=== PATIENT | female | born 1960 | race Caucasian/White ===

== ENCOUNTER 2016-07-10 13:22 | Emergency (ER) | payer MEDICARE, OTHER ==
[~2016-07-10] VITALS: Ht 165.1 cm; Wt 72.0 kg
[~2016-07-10 13:22] MED LIST: BECL8.7A IH; DEXL60CA2 PO; FAMO-18 PO; INDO25CA25 PO; IPRA14.76; SUMA20SP PO; TOPI25TA38 PO
[2016-07-10 14:18] VITALS: Ht 165.1 cm; Wt 72.0 kg
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
[2016-07-10] MEDS ORDERED: HYDROCODONE/APAP (5/325) TAB PO ONE (16:30)
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
[2016-07-10] MEDS ORDERED: CYCL-319 PO (17:50)
[2016-07-10] MEDS ORDERED: NAPR-260 PO (17:50)
[2016-07-10] MEDS ORDERED: TRAM50TA2 PO (17:50)
== END 2016-07-10 17:58 | disposition home or self-care (01) ==
LOC: FTE 13:22
DX: M54.2 Cervicalgia (principal); M54.5 Low back pain; R07.89 Other chest pain; R42 Dizziness and giddiness; J45.909 Unspecified asthma, uncomplicated
CPT/HCPCS: 71010; 72040; 72100

== ENCOUNTER 2017-03-03 17:34 | Emergency (ER) | payer MEDICARE, OTHER ==
[~2017-03-03] VITALS: Ht 157.5 cm; Wt 68.5 kg
[~2017-03-03 17:34] MED LIST changes: +CYCL-319 PO; -FAMO-18 PO; +FAMO-96 PO; +NAPR-260 PO; -TOPI25TA38 PO; +TOPI25TA51 PO; +TRAM50TA2 PO
[2017-03-03 17:45] VITALS: Ht 157.5 cm; Wt 68.5 kg
--- NOTE | 2017-03-03 19:13 | ERD ---
ER Documentation Chief Complaint Chief Complaint Complains of a cough x 2 weeks current medications not working HPI 56-year-old female presents to emergency department for complaints of cough for 2 weeks, history of surgery in her lungs, patient is currently on fluticasone inhaler, Combivent and a 10 mg of prednisone to help control her symptoms with only mild relief. Patient was also given promethazine with codeine to help with symptoms and albuterol at home to help with wheezing symptoms with mild relief. Patient does not have any fever or chills. Patient does not have any chest pain or palpitations. Denies any sick contacts. Patient denies any sore throat or ear pain. ROS All systems reviewed and are negative except as per history of present illness. Medications Home Meds Active Scripts Cyclobenzaprine Hcl* (Cyclobenzaprine Hcl*) 10 Mg Tablet, 10 MG PO QHS, #7 TAB Prov:DEBRA BAH PA-C 07/10/16 Naproxen* (Naprosyn*) 500 Mg Tablet, 500 MG PO BID Y for PAIN AND/OR INFLAMMATION, #30 TAB Prov:DEBRA BAH PA-C 07/10/16 Tramadol HCl (Tramadol HCl) 50 Mg Tablet, 50 MG PO Q4 Y for PAIN, #20 TAB Prov:DEBRA BAH PA-C 07/10/16 Reported Medications Beclomethasone Dip* (Qvar 40*) 7.3 Gm Inha, 7.3 GM IH 01/14/13 Sumatriptan* Nasal (Imitrex* Nasal) 20 Mg/[place], 25 MG PO TAKE ONE TAB NEEDED 01/14/13 Topiramate* (Topamax*) 25 Mg Tablet, 25 MG PO TID 05/11/12 Indomethacin* (Indocin*) 25 Mg Capsule, 25 MG PO BID 05/11/12 Famotidine* (Pepcid*) 20 Mg Tablet, 20 MG PO DAILY 05/11/12 Dexlansoprazole (Dexilant) 60 Mg , 60 MG PO DAILY 05/11/12 Albuterol/Ipratropium (Combivent) 14.7 Gm Inha PRN 03/12/09 Allergies Allergies: Coded Allergies: No Known Allergy (Verified , 05/11/12) PMhx/Soc History of Surgery: Yes (PNEUMONECTOMY,HYSTERECTOMY,BLADDER, GALLBLADDER) Anesthesia Reaction: No Hx Neurological Disorder: No Hx Respiratory Disorders: Yes (ASTHMA) Hx Cardiac Disorders: No Hx Psychiatric Problems: No Hx Miscellaneous Medical Probl: Yes (MIGRAINES) Hx Alcohol Use: No Hx Substance Use: No Hx Tobacco Use: No Smoking Status: Never smoker FmHx Family History: No coronary disease, No diabetes, No other Physical Exam Vitals Vital Signs Date Time Temp Pulse Resp B/P Pulse Ox O2 Delivery O2 Flow Rate FiO2 03/03/17 17:45 97.7 98 20 126/89 96 Physical Exam GENERAL: The patient is well developed and appropriate for usual state of health, in no apparent distress. CHEST: Clear to auscultation bilaterally. There are no rales, wheezes or rhonchi. HEART: Regular rate and rhythm. No murmurs, clicks, rubs or gallops. No S3 or S4. ABDOMEN: Soft, nontender and nondistended. Good bowel sounds. No rebound or guarding. No gross peritonitis. No gross organomegaly or masses. No Sebastian sign or McBurney point tenderness. BACK: No midline or flank tenderness. EXTREMITIES: Equal pulses bilaterally. There is no peripheral clubbing, cyanosis or edema. No focal swelling or erythema. Full range of motion. Grossly neurovascularly intact. NEURO: Alert and oriented. Cranial nerves 2-12 intact. Motor strength in all 4 extremities with 5/5 strength. Sensation grossly intact. Normal speech and gait. SKIN: There is no apparent rash or petechia. The skin is warm and dry. HEMATOLOGIC AND LYMPHATIC: There is no evidence of excessive bruising or lymphedema. No gross cervical, axillary, or inguinal lymphadenopathy. Results 24 hrs PROCEDURE: XR Chest. CLINICAL INDICATION: Cough. TECHNIQUE: Single frontal view of the chest COMPARISON: 07/10/2016 and 01/20/2013, with intervening chest radiographs. Partially visualized lung bases on CT examinations of the abdomen and pelvis dated 02/27/2013 and 09/04/2013. FINDINGS: Persistent volume loss on the right with near complete opacification again seen in right lung. Again seen is cardiac and mediastinal shift to the right. Differential considerations include remote right partial pneumonectomy. A surgical clip is again seen over the right upper lung. Right mainstem bronchus appears substantially opacified versus surgically absent. The left lung is again seen to be hyperinflated. The left lung appears clear. These findings are similar in appearance to plain film examinations of the chest dated 07/10/2016 and 01/20/2013. IMPRESSION: 1. Near-complete opacification of the right lung is without significant overhead foreman interval, with persistent right lung volume loss. 2. Nevertheless, these findings are without significant overhead foreman interval since 01/20/2013. 3. There is no CT examination of the chest of record at this institution, and a follow-up CT examination may be of further use, although there has been no overhead foreman about 4 years. 4. Partially visualized bilateral lung bases on prior CT examinations the abdomen and pelvis dated 02/27/2013 and 09/04/2013 suggest at least a partial right pneumonectomy. RPTAT: [facility]U Physician Eliazar Date Time Electronically viewed and signed by Ita Coulter Physician on 03/03/2017 20:13 RS/ CC: GINA LYNN ARMORING MACHINE OPERATOR Procedures/MDM Medical Decision Making: Patient symptoms are most likely consistent with acute bronchitis most likely caused by a typical infection. There is low suspicion for Pneumonia at this time since patients lungs sounds are clear, patient O2 saturation is normal and patient doesnt show any respiratory distress. Patients chest xray doesnt show infiltrates or any other cardiopulmonary emergencies at this time. There is low suspicion for other cardiopulmonary emergencies at this time such as CHF, Pulmonary Embolism, Pneumothorax, or any other cardiopulmonary emergencies at this time. There is low suspicion for sepsis. Patient appears well and is hemodynamically stable. Patient does not have any fever. Disposition: Home. Condition: Stable Prescriptions: Tessalon Perles, azithromycin, continue albuterol and other medication Instructions: Patient is advised to take medications as prescribed. Patient is advised to rest. Patient advised to increase fluid intake, do humidifier at home and if possible, do salt water gargles. Patient is advised that if symptoms are worse, shortness of breath, uncontrolled fever, stridor, vomiting, worst signs and symptoms to return to emergency department immediately. Otherwise, patient is advised to follow up with primary doctor in 5-7 days. Disclaimer: Inadvertent spelling and grammatical errors are likely due to EHR/ dictation software use and do not reflect on the overall quality of patient care. Also, please note that the electronic time recorded on this note does not necessarily reflect the actual time of the patient encounter. Departure Diagnosis: Primary Impression: Acute bronchitis Bronchitis organism: unspecified organism Qualified Code: J20.9 - Acute bronchitis, unspecified organism Condition: Stable Patient Instructions: Bronchitis, Antiobiotic Treatment (Adult) Additional Instructions: Patient is advised to take medications as prescribed. Patient is advised to rest. Patient advised to increase fluid intake, do humidifier at home and if possible, do salt water gargles. Patient is advised that if symptoms are worse, shortness of breath, uncontrolled fever, stridor, vomiting, worst signs and symptoms to return to emergency department immediately. Otherwise, patient is advised to follow up with primary doctor in 5-7 days. GINA LYNN NP Mar 03, 2017 19:13
[2017-03-03 19:45] VITALS: BP 124/79; PULSE 72; RESP 18; TEMP 98.3
--- NOTE | 2017-03-03 20:13 | RADRPT ---
PROCEDURE: XR Chest. CLINICAL INDICATION: Cough. TECHNIQUE: Single frontal view of the chest COMPARISON: 07/10/2016 and 01/20/2013, with intervening chest radiographs. Partially visualized angelica g bases on CT examinations of the abdomen and pelvis dated 02/27/2013 and 09/04/2013. FINDINGS: Persistent volume loss on the right with near complete opacification again seen in right lung. Again seen is cardiac and mediastinal shift to the right. Differential considerations include remote right partial pneumonectomy. A surgical clip is again see n over the right upper lung. Right mainstem bronchus appears substantially opacified versus surgical ly absent. The left lung is again seen to be hyperinflated. The left lung appears clear. These findi ngs are similar in appearance to plain film examinations of the chest dated 07/10/2016 and 3. IMPRESSION: 1. Near-complete opacification of the right lung is without significant exchange engineer interval, with p ersistent right lung volume loss. 2. Nevertheless, these findings are without significant exchange engineer interval since 01/20/2013. 3. There is no CT examination of the chest of record at this institution, and a follow-up CT examina tion may be of further use, although there has been no exchange engineer about 4 years. 4. Partially visualized bilateral lung bases on prior CT examinations the abdomen and pelvis dated 1 04/30/2012 and 09/04/2013 suggest at least a partial right pneumonectomy. RPTAT: [facility]U Physician Eliazar Date Time Electronically viewed and signed by Physician Eliazar on 03/03/2017 20:13 RS/
[2017-03-03] MEDS ORDERED: BENZ100C70 PO (20:32)
[2017-03-03] MEDS ORDERED: AZIT250T94 PO (20:32)
== END 2017-03-03 20:54 | disposition home or self-care (01) ==
LOC: FTE 17:34
DX: J20.9 Acute bronchitis, unspecified (principal); J45.909 Unspecified asthma, uncomplicated
CPT/HCPCS: 71010

== ENCOUNTER 2018-06-10 09:15 | Day surgery (SDC) | payer MEDICARE, OTHER ==
[~2018-06-10] VITALS: Ht 160 cm; Wt 71.0 kg
[~2018-06-10 09:15] MED LIST changes: +AZIT250T PO; +BENZ-6 PO; -CYCL-319 PO; +CYCL10TA7 PO; +INDO25CA16 PO; -INDO25CA25 PO; -NAPR-260 PO; +NAPR-985 PO; +TOPI25TA PO; -TOPI25TA51 PO
[2018-06-10 10:22] VITALS: Ht 160 cm; Wt 71.0 kg
--- NOTE | 2018-06-10 10:22 | PREAC ---
Date/Time of Note Date/Time of Note DATE: 06/10/18 TIME: 10: Anesthesia Eval and Record Evaluation Time Pre-Procedure Interview DATE: 06/10/18 TIME: 10:21 Age 57 Sex female NPO: 8 hrs Preoperative diagnosis abd pain Planned procedure egd, colonoscopy Past Medical History Past Medical History: Includes Pulm: Asthma GI: GERD Surgery & Anesthesia Issues No known issue Meds Anticoagulation: No Beta Jeremy within 24 hr: No Reason Beta Jeremy not given: Pt. not on B-Jeremy Active Scripts Benzonatate* (Tessalon Perle*) 100 Mg Capsule, 100 MG PO Q8H PRN for COUGH, #20 CAP Prov:GINA LYNN NP 03/03/17 Azithromycin* (Zithromax*) 250 Mg Tablet, 250 MG PO .ZPACK DIRECTED, #6 TAB TAKE 500 MG (2 TABS) THE FIRST DAY THEN 250 MG (1 TAB) DAYS 2-5 Prov:GINA LYNN NP 03/03/17 Cyclobenzaprine Hcl* (Cyclobenzaprine Hcl*) 10 Mg Tablet, 10 MG PO QHS, #7 TAB Prov:DEBRA BAH PA-C 07/10/16 Naproxen* (Naprosyn*) 500 Mg Tablet, 500 MG PO BID PRN for PAIN AND/OR INFLAMMATION, #30 TAB Prov:DEBRA BAH PA-C 07/10/16 Tramadol HCl (Tramadol HCl) 50 Mg Tablet, 50 MG PO Q4 PRN for PAIN, #20 TAB Prov:DEBRA BHA PA-C 07/10/16 Reported Medications Beclomethasone Dip* (Qvar 40*) 7.3 Gm Inha, 7.3 GM IH 01/14/13 Sumatriptan* Nasal (Imitrex* Nasal) 20 Mg/[place], 25 MG PO TAKE ONE TAB NEEDED 01/14/13 Topiramate* (Topamax*) 25 Mg Tablet, 25 MG PO TID 05/11/12 Indomethacin* (Indocin*) 25 Mg Capsule, 25 MG PO BID 05/11/12 Famotidine* (Pepcid*) 20 Mg Tablet, 20 MG PO DAILY 05/11/12 Dexlansoprazole (Dexilant) 60 Mg Cap., 60 MG PO DAILY 05/11/12 Albuterol/Ipratropium (Combivent) 14.7 Gm Inha PRN 03/12/09 Meds reviewed: Yes Allergies Coded Allergies: No Known Allergy (Verified , 05/11/12) Allergies Reviewed: Yes Labs/Studies Labs Reviewed: Reviewed by anesthesiologist test: Negative Studies: ECG Pre-procedure Exam Airway: Adequate mouth opening, Adequate thyromental dist Mallampati: Mallampati II Teeth: Normal Lung: Normal Heart: Normal ASA Physical Status ASA physical status: 2 Emergency: None Planned Anesthetic General/MAC: Mask Pre-operative Attestations Prior to commencing anesthesia and surgery, the patient was re-evaluated, there was verification of: *The patient's identity *The results of appropriate recent lab work and preoperative vital signs *The above evaluation not changing prior to induction *Anesthetic plan, risk benefits, alternative and complications discussed with patient/family; questions answered; patient/family understands, accepts and wishes to proceed. STEPHON HARRIS Jun 10, 2018 10:22
[2018-06-10] MEDS ORDERED: LINA72CA PO (10:51)
[2018-06-10] MEDS ORDERED: ALBU18HF INHALATION (10:51)
[2018-06-10 10:52] VITALS: BP 170/86; PULSE 66; RESP 18
[2018-06-10 11:55] VITALS: BP 124/80; RESP 20
--- NOTE | 2018-06-10 12:42 | PAC ---
Date/Time of Note Date/Time of Note DATE: 06/10/18 TIME: 12:41 Post-Anesthesia Notes Post-Anesthesia Note Last documented vital signs Vital Signs Date Temp Pulse Resp B/P (MAP) Pulse Ox O2 O2 Flow FiO2 Time Delivery Rate 06/10/18 20 124/80 93 11:55 (95) 06/10/18 98.0 66 Room Air 10:52 Activity: WNL Respiratory function: WNL Cardiovascular function: WNL Mental status: Baseline Pain reasonably controlled: Yes Hydration appropriate: Yes Nausea/Vomiting absent: Yes STEPHON HARRIS Jun 10, 2018 12:42
--- NOTE | 2018-06-12 18:56 | PAC ---
Date/Time of Note Date/Time of Note DATE: 06/12/18 TIME: 18:56 Post-Anesthesia Notes Post-Anesthesia Note Last documented vital signs Vital Signs Date Temp Pulse Resp B/P (MAP) Pulse Ox O2 O2 Flow FiO2 Time Delivery Rate 06/10/18 20 124/80 93 11:55 (95) 06/10/18 98.0 66 Room Air 10:52 Activity: WNL Respiratory function: WNL Cardiovascular function: WNL Mental status: Baseline Pain reasonably controlled: Yes Hydration appropriate: Yes Nausea/Vomiting absent: Yes STEPHON HARRIS Jun 12, 2018 18:56
== END 2018-06-10 14:58 | disposition home or self-care (01) ==
LOC: GIL 09:15
PROVIDERS: ATTEND Internal Medicine Gastroenterology
DX: R19.5 Other fecal abnormalities (principal); K64.8 Other hemorrhoids; K57.30 Diverticulosis of large intestine without perforation or abscess without bleeding; K21.9 Gastro-esophageal reflux disease without esophagitis
CPT/HCPCS: 88305